=== PATIENT | male | born 1990 | race Caucasian/White ===

== ENCOUNTER 2018-07-06 11:28 | Inpatient (IN) | payer OTHER, SELFPAY ==
[2018-07-06] MEDS ORDERED: Lidocaine 1% PF 5 ML VIAL ONE (11:40)
[2018-07-06] MEDS ORDERED: PROPOFOL 200 MG/20 ML VIAL ONE (11:40)
[2018-07-06] MEDS ORDERED: Ondansetron PF 4 MG/2 ML Vial ONE ×2 (11:40→11:49)
[2018-07-06] MEDS ORDERED: Succinylcholine Chloride 20 MG/ML 10 ml SYRINGE FS ONE (11:40)
[2018-07-06] MEDS ORDERED: Dexamethasone 20 MG/5 ML VIAL ONE (11:40)
[2018-07-06] MEDS ORDERED: Ketorolac Tromethamine 30 MG/ML VIAL ONE (11:40)
[2018-07-06 11:46] LABS: #Basophils 0.1 thou/uL (0.0-0.2); #Eosinphils 0.1 thou/uL (0.0-0.7); #Lymphocytes 3.2 thou/uL (1.20-3.40); #Monocytes 0.7 thou/uL (0.11-0.59); #Neutrophils 9.7 thou/uL (1.40-6.50); %Basophils 0.5 % (0.0-1.0); %Eosinophils 0.5 % (0.0-10.0); %Lymphocytes 23.2 % (21.0-51.0); %Monocytes 4.9 % (0.0-10.0); %Neutrophils 70.9 % (42.0-75.0); Mean Corpuscular HGB CONC 32.6 g/dL (32.0-36.0); Mean Corpuscular Hemoglobin 29.5 pg (27.0-31.0); Mean Corpuscular Volume 90.6 fL (78.0-98.0); Mean Platelet Volume 7.5 fL (7.4-10.4); Platelet Count 312 thou/uL (130-400); RBC Distribution Width 11.5 % (11.5-14.5); Red Blood Cell (RBC) Count 5.43 mill/uL (4.70-6.10); White Blood Cell (WBC) Count 13.7 thou/uL (4.8-10.8)
[2018-07-06] MEDS ORDERED: Morphine 4 MG/ML VIAL ONE ×2 (11:49→12:11)
[2018-07-06 12:03] LABS: ALT (SGPT) 27 U/L (8-55); AST (SGOT) 25 U/L (5-34); Albumin 4.6 g/dL (3.5-5.0); Alkaline Phosphatase 55 U/L (40-150); Anion Gap 13 mmol/L (10-20); BUN (Urea Nitrogen) 13 mg/dL (8.9-20.6); Bilirubin, Total 1.1 mg/dL (0.2-1.2); Calc. Creatinine Clearance 0 mL/min (70-130); Calcium 9.4 mg/dL (7.8-10.44); Carbon Dioxide 21 mmol/L (22-29); Chloride 106 mmol/L (98-107); Estimated GFR-MDRD 78; Globulin 2.5 g/dL (2.4-3.5); Glucose 214 mg/dL (70-105); Potassium 3.3 mmol/L (3.5-5.1); Protein, Total 7.1 g/dL (6.0-8.3); Sodium 137 mmol/L (136-145)
--- NOTE | 2018-07-06 12:14 | CT ---
CT CERVICAL SPINE: History: Trauma. Technique: Axial images were obtained with coronal and sagittal reconstructions. FINDINGS/IMPRESSION: No evidence of acute cervical spine fractures, subluxations, or bony lesions. Osseous structures are unremarkable. Vertebral bodies are unremarkable. Incidentally noted left pterygoid wing fracture is present. Please see accompanying facial CT dictati on. POS: [facility]
[2018-07-06] MEDS ORDERED: HYDROmorphone 0.5 MG/0.5 ML SYRINGE ONE ×2 (12:47→17:42)
--- NOTE | 2018-07-06 13:14 | CT ---
CT FACIAL BONES: 07/06/2018 HISTORY: Injury. Trauma. Pain. COMPARISON: None. TECHNIQUE: Serial axial CT imaging is obtained at 2.5 mm intervals, through the facial bones, without contrast. Coronal and sagittal reformatted imaging obtained. FINDINGS: There is an obliquely oriented fracture involving the calvarium, anteriorly, on the right, just to th e right of midline, superior to the right frontal sinus. There are fracture deformities extending through the anterior wall of the bilateral frontal sinuses, along their inferior margin, at the axial level of the edmundo chance. There is a comminuted and marke dly displaced bilateral nasal bone fracture. There are markedly comminuted and impacted fracture def ormities involving the osseous nasal septum. There is marked associated nasal soft tissue swelling. There is a comminuted and impacted fracture involving the orbital roof, on the right, extending into inferior aspect of the right frontal sinus. Nondisplaced, obliquely oriented fracture suspected, involving the lateral aspect of the orbital wall , on the right. Nondisplaced right zygomatic arch fracture. Comminuted fractures are seen involving the pterygoid plate, extending into the medial and lateral pt erygoids, bilaterally. There is a depressed and comminuted fracture involving the anterior aspect of the maxillary sinus, on the right, extending to involve the posterior wall of the maxillary sinus an d the inferior aspect of the maxillary sinus on the right. There is an orbital floor fracture on the right with 7 mm of inferior displacement into the right maxillary sinus. The mandible appears intact. Neither temporomandibular joint is dislocated. Comminuted, medially displaced, medial orbital wall fractures are noted bilaterally. There is a fracture involving the roof of the orbit on the left, extending into the left frontal sinu s. The left zygomatic arch is intact. A comminuted fracture is seen involving the anterior wall and posterior wall of the left maxillary sinus. Nondisplaced left orbital floor fracture noted. Vertic ally oriented fracture deformity is seen involving the body of the maxilla, on the left, extending fr om the inferior aspect of the left maxillary sinus, anteriorly. There is marked soft tissue swelling and probable multifocal laceration involving the paranasal region and the upper lip. IMPRESSION: Extensive bilateral maxillofacial fractures, as described above. Results called to Dr. Shaikh at 12:02 p.m. on 07/06/2018. CODE CR POS: [facility]
[2018-07-06] MEDS ORDERED: Promethazine HCl 25 MG/ML VIAL ONE (13:18)
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
[2018-07-06] MEDS ORDERED: Dextrose 50% Abboject 50 ML SYRINGE SLOW IVP PRN (14:22)
[2018-07-06] MEDS ORDERED: Dextrose 5% in Water 1,000 ML IV PRN (14:22)
[2018-07-06] MEDS ORDERED: diphenhydrAMINE 50 MG/ML VIAL IM PRN (14:28)
[2018-07-06] MEDS ORDERED: HYDROmorphone 10 mg/100 ml CADD IVPB PRN ×2 (14:28→22:11)
[2018-07-06] MEDS ORDERED: diphenhydrAMINE 25 MG CAP PO PRN (14:28)
[2018-07-06] MEDS ORDERED: Naloxone HCl 0.4 mg/ml Vial IV PRN (14:28)
[2018-07-06] MEDS ORDERED: Promethazine HCl 25 MG/ML VIAL IM PRN ×2 (14:28→22:14)
[2018-07-06] MEDS ORDERED: diphenhydrAMINE 50 MG/ML VIAL IVP PRN (14:28)
[2018-07-06] MEDS ORDERED: Communication Order-Pharmacy FS SCH (14:30)
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
[2018-07-06] MEDS ORDERED: Lidocaine 1% w/Epinephrine 1:100K 30 ML VIAL ONE (16:25)
[2018-07-06] MEDS ORDERED: Chlorhexidine Gluconate 15 ML UDCUP SSP ONE (16:25)
[2018-07-06] MEDS ORDERED: Bupivacaine/Epinephrine 0.25% 30 ML VIAL ONE (16:25)
[2018-07-06] MEDS ORDERED: Hydrocortisone 1% Cream 30 GM TUBE ONE (16:25)
[2018-07-06] MEDS ORDERED: Famotidine/PF 20 mg/2ml Vial ONE (17:41)
[2018-07-06] MEDS ORDERED: Fentanyl 250 MCG/5 ML VIAL ONE (18:20)
[2018-07-06] MEDS ORDERED: Oxymetazoline HCl 0.05% ( 15 ML ) ONE (18:34)
[2018-07-06] MEDS ORDERED: Bacitracin Zinc Ointment 30 gm TUBE ONE ×2 (19:17→20:31)
[2018-07-06] MEDS ORDERED: CEFAZOLIN 1 GM in Sodium Chloride 0.9% 100 ML IVPB SCH (22:00)
[2018-07-06] MEDS ORDERED: Promethazine HCl 25 MG/ML VIAL SLOW IVP PRN (22:14)
[2018-07-06] MEDS ORDERED: Ondansetron HCl/PF 4 MG/2 ML Vial IVP PRN (22:14)
[2018-07-06] MEDS: Sodium Chloride 0.9% 1,000 ML IV SCH (23:23)
[2018-07-06] MEDS: Famotidine 20 MG TAB PO SCH (23:24)
[2018-07-06] MEDS: Acetaminophen 1,000 MG in Premix Bag 1 BAG IVPB SCH (23:28)
--- NOTE | 2018-07-06 23:31 | RAD ---
PORTABLE AP CHEST X-RAY: 07/06/18 HISTORY: Possible aspirated tooth. FINDINGS: The cardiac silhouette and pulmonary vasculature are within normal limits. The lungs are clear. Osse ous structures are intact. No definite radiopaque foreign body is identified. Calcification overlies the left upper quadrant. Exact location of this structure is uncertain. Lungs are clear. Osseous stru ctures are intact. IMPRESSION: 1. No acute cardiopulmonary process. 2. Radiopaque density appearing to represent a calcification overlying the left upper quadrant. This could potentially present a tooth given that there is absence of an small incisor tooth involvin g the maxilla noted on CT scan of the facial bones. However, this is difficult to definitively confir m on this exam. POS: [facility]
--- NOTE | 2018-07-06 23:45 | RAD ---
PORTABLE AP ABDOMINAL RADIOGRAPH 07/06/18 HISTORY: Possible aspirated tooth. FINDINGS: The visualized lung bases are clear. There is gaseous distention of the stomach. There is a calcific density overlying the left upper quadrant which is difficult to further localize. This could potentia lly represent a radiopaque foreign body related to a tooth given absence of the incisor tooth of the maxilla. No additional radiopaque foreign body is seen and there is no additional suspicious calcific ations are seen. Osseous structures appear intact. IMPRESSION: 1. Prominent gaseous distention of the stomach. 2. Radiopaque density appearing to represent a calcification overlying the left upper quadrant. This could potentially present a tooth given that there is absence of an small incisor tooth involvin g the maxilla noted on CT scan of the facial bones. However, this is difficult to definitively confir m on this exam. POS: [facility]
[2018-07-07 00:12] VITALS: BMI 23.8
[2018-07-07] MEDS: Ketorolac Tromethamine 30 MG/ML VIAL IVP SCH ×4 (00:12→17:34)
[2018-07-07] MEDS: Famotidine/PF 20 mg/2ml Vial SLOW IVP SCH ×3 (00:13→20:37)
[2018-07-07] MEDS: Acetaminophen 1,000 MG in Premix Bag 1 BAG IVPB SCH ×4 (00:25→17:35)
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
[2018-07-07] MEDS: Sodium Chloride 0.9% 1,000 ML IV SCH (04:26)
[2018-07-07] MEDS: Ondansetron PF 4 MG/2 ML Vial IVP PRN ×2 (04:49→09:05)
[2018-07-07 04:51] LABS: #Lymphocytes 0.6 thou/uL (1.20-3.40); #Monocytes 0.8 thou/uL (0.11-0.59); #Neutrophils 15.6 thou/uL (1.40-6.50); %Basophils 0.1 % (0.0-1.0); %Eosinophils 0.1 % (0.0-10.0); %Lymphocytes 3.5 % (21.0-51.0); %Monocytes 4.5 % (0.0-10.0); %Neutrophils 91.7 % (42.0-75.0); Hemoglobin 13.9 g/dL (14.0-18.0); Mean Corpuscular Hemoglobin 30.8 pg (27.0-31.0); Mean Corpuscular Volume 90.6 fL (78.0-98.0); Mean Platelet Volume 7.5 fL (7.4-10.4); Platelet Count 207 thou/uL (130-400); RBC Distribution Width 11.5 % (11.5-14.5); Red Blood Cell (RBC) Count 4.52 mill/uL (4.70-6.10)
[2018-07-07 05:03] LABS: Anion Gap 11 mmol/L (10-20); BUN (Urea Nitrogen) 19 mg/dL (8.9-20.6); Calc. Creatinine Clearance 122 mL/min (70-130); Calcium 8.1 mg/dL (7.8-10.44); Carbon Dioxide 22 mmol/L (22-29); Chloride 108 mmol/L (98-107); Estimated GFR-MDRD Greater than 90; Glucose 142 mg/dL (70-105); Potassium 4.1 mmol/L (3.5-5.1); Sodium 137 mmol/L (136-145)
--- NOTE | 2018-07-07 08:13 | CT ---
PRELIMINARY REPORT/[facility]/EMERGENTY AFTER-HOURS PROCEDURE CT Head Without Intravenous Contrast EXAM DATE/TIME: 07/07/2018 5:40 AM CLINICAL HISTORY: 28 years old, male; Condition or disease; Other: Tbi; Patient HX: Evaluate tbi TECHNIQUE: Axial computed tomography images of the head/brain without intravenous contrast. COMPARISON: CT Brain WO Con 07/06/2018 11:41 AM FINDINGS: Brain: No acute hemorrhage. No significant white matter disease. No edema. Ventricles: Normal. No ventriculomegaly. Bones/joints: Again noted are numberous bilateral facial, nasal bone, and orbital fractures. Sinuses: Bilateral hemorrhagic air fluid levels again noted. Mastoid air cells: Normal as visualized. No mastoid effusion. Soft tissues: Again noted is large left scalp hematoma which has increased in size. Now present is le ft sided subcutaneous emphysema. Again noted left periorbital edema and emphysema. IMPRESSION: No acute stroke or intracranial hemorrhage. Progression in left scalp edema/ hematoma. Again noted are numberous bilateral facial, nasal bone, and orbital fractures. Bilateral hemorrhagic air fluid levels again noted. Thank you for allowing us to participate in the care of your patient. Dictated and Authenticated by: Radha Rush MD 07/07/2018 6:01 AM Central Time ([place] & [place]) FINAL REPORT: CT HEAD: Date: 07-07-18 Time: 5:40 a.m. Comparison: CT 07-06-18 FINDINGS: No acute intracranial hemorrhage. Increase in the left scalp edema and hematoma. Facial bone fracture s again noted. I am in agreement with the preliminary report. Code QA POS: [facility]
[2018-07-07] MEDS: Bacitracin Zinc 1 Packet TOP SCH ×3 (09:21→20:38)
[2018-07-07] MEDS: Scopolamine 1.5 mg/72 hour Patch TD SCH (09:21)
[2018-07-07] MEDS: Famotidine 20 MG TAB PO SCH ×2 (09:31→20:38)
[2018-07-07] MEDS ORDERED: Bacitracin Zinc 1 Packet TOP SCH (10:30)
--- NOTE | 2018-07-07 14:42 | CT ---
NONCONTRAST CT FACIAL BONES Date: 07-07-18 History: Multiple facial fractures as well as periorbital fractures. Patient is post ORIF of jaw. Comparison: 07-06-18 FINDINGS: Again noted are multiple facial bone fractures, please seen prior study for description of fractures. Alignment of the multiple facial bone fractures are overall similar to prior exam. Fractures involve the orbital roof on the left extending to the frontal sinus with fractures involving the inferior wa ll of the right frontal sinus. There has been interval wiring involving the maxilla and mandible when compared to the prior exam. Ab sence of a tooth in the anterior maxilla is again present. Again noted is hemorrhage within the paranasal sinuses including the bilateral frontal sinuses, ethmo id air cells, and each maxillary antra with air fluid levels in each sphenoid sinus. There is no post septal hemorrhage or gas present. There is diffuse subcutaneous edema seen about the facial soft tissues and with significant soft tissue swelling seen extending laterally into the late ral left neck. The fractures are overall similar to the prior exam with multiple displaced fractures present. IMPRESSION: 1. Extensive bilateral maxillofacial fractures which were described on prior study. Please see that e xam for further details. 2. Interval wiring of the mandible and maxilla. 3. Hemorrhage throughout the paranasal sinuses. 4. Facial subcutaneous soft tissue swelling with prominent soft tissue swelling about the left latera l facial soft tissues and extending into the neck. 5. There is subcutaneous emphysema in the left infraorbital location, overall the subcutaneous emphys lissette within the facial soft tissues has mildly improved. There is prominent subcutaneous soft tissue s welling seen anterior to the mandible and maxilla. However, soft tissue defects in the midline in reg ion of the maxilla has improved. POS: [facility]
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
[2018-07-08] MEDS: Ketorolac Tromethamine 30 MG/ML VIAL IVP SCH ×4 (00:24→18:00)
[2018-07-08 06:01] LABS: #Eosinphils 0.1 thou/uL (0.0-0.7); #Lymphocytes 1.6 thou/uL (1.20-3.40); #Monocytes 0.7 thou/uL (0.11-0.59); #Neutrophils 7.1 thou/uL (1.40-6.50); %Basophils 0.4 % (0.0-1.0); %Eosinophils 0.7 % (0.0-10.0); %Lymphocytes 16.5 % (21.0-51.0); %Neutrophils 75.4 % (42.0-75.0); Hemoglobin 11.9 g/dL (14.0-18.0); Mean Corpuscular HGB CONC 33.6 g/dL (32.0-36.0); Mean Corpuscular Hemoglobin 30.8 pg (27.0-31.0); Mean Corpuscular Volume 91.7 fL (78.0-98.0); Mean Platelet Volume 7.5 fL (7.4-10.4); Platelet Count 151 thou/uL (130-400); RBC Distribution Width 11.4 % (11.5-14.5); Red Blood Cell (RBC) Count 3.86 mill/uL (4.70-6.10); White Blood Cell (WBC) Count 9.4 thou/uL (4.8-10.8)
[2018-07-08 06:13] LABS: Anion Gap 9 mmol/L (10-20); BUN (Urea Nitrogen) 13 mg/dL (8.9-20.6); Calc. Creatinine Clearance 135 mL/min (70-130); Calcium 8.2 mg/dL (7.8-10.44); Carbon Dioxide 23 mmol/L (22-29); Chloride 112 mmol/L (98-107); Estimated GFR-MDRD Greater than 90; Glucose 95 mg/dL (70-105); Magnesium 1.5 mg/dL (1.6-2.6); Sodium 140 mmol/L (136-145)
[2018-07-08 06:18] LABS: Phosphorus 1.9 mg/dL (2.3-4.7)
--- NOTE | 2018-07-08 07:59 | RAD ---
PORTABLE CHEST: Date: 07/08/18 HISTORY: Follow-up aspiration. COMPARISON: 07/06/18. FINDINGS: Lung vela remain clear. No infiltrate apparent. Heart and mediastinum unremarkable. IMPRESSION: No evidence of infiltrate. POS: [facility]
[2018-07-08] MEDS ORDERED: Magnesium 2 GM/50 ML 2 GM in Premix Bag 1 BAG IVPB SCH (08:00)
[2018-07-08] MEDS ORDERED: Sodium Phosphate 30 MEQ in Sodium Chloride 0.9% 250 ML 250 ML IVPB SCH (08:00)
[2018-07-08] MEDS: Bacitracin Zinc 1 Packet TOP SCH ×3 (08:22→20:48)
[2018-07-08] MEDS: Famotidine 20 MG TAB PO SCH ×2 (08:22→20:42)
[2018-07-08] MEDS: Famotidine/PF 20 mg/2ml Vial SLOW IVP SCH ×2 (08:25→20:41)
[2018-07-08] MEDS ORDERED: Magnesium Sulfate 3 GM in Sodium Chloride 0.9% 100 ML IVPB SCH (11:30)
[2018-07-08] MEDS: SULFAMYLON TOP SCH ×2 (11:44→11:48)
[2018-07-08] MEDS ORDERED: [UNRECOGNIZED DRUG - OTHER] TP SCH (12:00)
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
[2018-07-08] MEDS: Acetaminophen/Codeine 120-12MG/5 ML UDCUP PO PRN (18:45)
[2018-07-08] MEDS: [UNRECOGNIZED DRUG - OTHER] TP SCH (20:41)
[2018-07-09] MEDS: Ketorolac Tromethamine 30 MG/ML VIAL IVP SCH ×5 (06:06→23:47)
[2018-07-09 06:11] LABS: #Eosinphils 0.1 thou/uL (0.0-0.7); #Lymphocytes 1.4 thou/uL (1.20-3.40); #Monocytes 0.7 thou/uL (0.11-0.59); #Neutrophils 5.8 thou/uL (1.40-6.50); %Basophils 0.4 % (0.0-1.0); %Eosinophils 1.2 % (0.0-10.0); %Lymphocytes 16.9 % (21.0-51.0); %Monocytes 8.4 % (0.0-10.0); Hemoglobin 11.4 g/dL (14.0-18.0); Mean Corpuscular HGB CONC 34.6 g/dL (32.0-36.0); Mean Corpuscular Hemoglobin 31.6 pg (27.0-31.0); Mean Corpuscular Volume 91.4 fL (78.0-98.0); Mean Platelet Volume 7.7 fL (7.4-10.4); Platelet Count 157 thou/uL (130-400); RBC Distribution Width 11.4 % (11.5-14.5); Red Blood Cell (RBC) Count 3.61 mill/uL (4.70-6.10)
[2018-07-09 06:36] LABS: Anion Gap 9 mmol/L (10-20); BUN (Urea Nitrogen) 8 mg/dL (8.9-20.6); Calc. Creatinine Clearance 134 mL/min (70-130); Calcium 8.5 mg/dL (7.8-10.44); Carbon Dioxide 25 mmol/L (22-29); Chloride 111 mmol/L (98-107); Estimated GFR-MDRD Greater than 90; Glucose 98 mg/dL (70-105); Magnesium 2.1 mg/dL (1.6-2.6); Phosphorus 2.5 mg/dL (2.3-4.7); Potassium 3.8 mmol/L (3.5-5.1); Sodium 141 mmol/L (136-145)
[2018-07-09] MEDS: Acetaminophen/Codeine 120-12MG/5 ML UDCUP PO PRN ×2 (08:30→23:53)
[2018-07-09] MEDS: Famotidine/PF 20 mg/2ml Vial SLOW IVP SCH ×2 (08:32→21:19)
[2018-07-09] MEDS: [UNRECOGNIZED DRUG - OTHER] TP SCH ×2 (08:33→21:26)
[2018-07-09] MEDS: Bacitracin Zinc 1 Packet TOP SCH ×2 (08:33→21:21)
[2018-07-09] MEDS: Famotidine 20 MG TAB PO SCH ×2 (08:34→21:21)
[2018-07-09] MEDS: Chlorhexidine Gluconate 15 ML UDCUP SSP SCH (21:20)
[2018-07-09] MEDS: Enoxaparin Sodium 40 MG/0.4 ML SYRINGE SC SCH (21:20)
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
[2018-07-10] MEDS: Polyethylene Glycol 3350 17 GM Packet PO SCH (08:09)
[2018-07-10] MEDS: Famotidine/PF 20 mg/2ml Vial SLOW IVP SCH ×2 (08:09→20:13)
[2018-07-10] MEDS: Bacitracin Zinc 1 Packet TOP SCH ×2 (08:09→20:12)
[2018-07-10] MEDS: [UNRECOGNIZED DRUG - OTHER] TP SCH ×2 (08:10→20:14)
[2018-07-10] MEDS: Senokot 8.6 MG TAB PO SCH ×2 (08:10→20:14)
[2018-07-10] MEDS: Scopolamine 1.5 mg/72 hour Patch TD SCH (08:10)
[2018-07-10] MEDS: Chlorhexidine Gluconate 15 ML UDCUP SSP SCH ×3 (08:10→17:39)
[2018-07-10] MEDS: Famotidine 20 MG TAB PO SCH ×2 (08:10→20:14)
--- NOTE | 2018-07-10 13:24 | PRG ---
DATE OF SERVICE: 07/10/2018 SUBJECTIVE: No acute 24-hour events. The patient is doing well. Pain is well controlled. OBJECTIVE: Prieto looked better than the day before. MMF is intact. All other wounds are clean, dry, and intact. There are no signs or symptoms of infection at this point. ASSESSMENT: Multiple facial fractures, status post repair of LeFort I fracture , multiple facial prieto. PLAN: We will take the patient to the operating room, likely Tuesday or this week, for ORIF of facial fractures of the orbit as well as nose, which would possibly need a closed reduction. Continue Dr. Rosario's recommendations and appreciate his help. NELIA
[2018-07-10] MEDS: Acetaminophen/Codeine 120-12MG/5 ML UDCUP PO PRN ×2 (15:47→20:15)
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
[2018-07-10] MEDS: Enoxaparin Sodium 40 MG/0.4 ML SYRINGE SC SCH (20:13)
[2018-07-10] MEDS: Ibuprofen 100 MG/5 ML UDCUP PO PRN (23:41)
[2018-07-11] MEDS: Famotidine/PF 20 mg/2ml Vial SLOW IVP SCH ×2 (07:54→21:32)
[2018-07-11] MEDS: Chlorhexidine Gluconate 15 ML UDCUP SSP SCH ×3 (07:54→17:13)
[2018-07-11] MEDS: [UNRECOGNIZED DRUG - OTHER] TP SCH ×2 (07:55→21:31)
[2018-07-11] MEDS: Polyethylene Glycol 3350 17 GM Packet PO SCH (07:55)
[2018-07-11] MEDS: Bacitracin Zinc 1 Packet TOP SCH ×2 (07:56→21:32)
[2018-07-11] MEDS: Famotidine 20 MG TAB PO SCH ×2 (07:56→22:14)
[2018-07-11] MEDS: Senokot 8.6 MG TAB PO SCH ×2 (07:56→21:31)
[2018-07-11] MEDS ORDERED: Acetaminophen/Codeine Oral Solution PO PRN (09:20)
[2018-07-11] MEDS ORDERED: diphenhydrAMINE 50 MG/ML VIAL IVP PRN (09:21)
[2018-07-11] MEDS: Ibuprofen 100 MG/5 ML UDCUP PO PRN (09:30)
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
[2018-07-11] MEDS: Enoxaparin Sodium 40 MG/0.4 ML SYRINGE SC SCH (21:31)
[2018-07-12] MEDS: Ibuprofen 100 MG/5 ML UDCUP PO PRN ×3 (00:19→22:10)
[2018-07-12] MEDS: Bacitracin Zinc 1 Packet TOP SCH ×2 (09:25→22:01)
[2018-07-12] MEDS: [UNRECOGNIZED DRUG - OTHER] TP SCH ×2 (09:29→22:01)
[2018-07-12] MEDS: Polyethylene Glycol 3350 17 GM Packet PO SCH (09:32)
[2018-07-12] MEDS: Zinc Sulfate 220 MG CAP PO SCH (09:34)
[2018-07-12] MEDS: Senokot 8.6 MG TAB PO SCH ×2 (09:35→22:00)
[2018-07-12] MEDS: Ascorbic Acid 500 mg Chewable Tablet PO SCH (09:35)
[2018-07-12] MEDS: Famotidine 20 MG TAB PO SCH ×2 (09:35→22:01)
[2018-07-12] MEDS: Bisacodyl 5 MG TAB PO SCH (09:35)
[2018-07-12] MEDS: Chlorhexidine Gluconate 15 ML UDCUP SSP SCH ×3 (09:49→17:32)
[2018-07-12] MEDS: Famotidine/PF 20 mg/2ml Vial SLOW IVP SCH ×2 (09:50→22:00)
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
[2018-07-12] MEDS: Enoxaparin Sodium 40 MG/0.4 ML SYRINGE SC SCH (22:00)
[2018-07-13] MEDS: Ascorbic Acid 500 mg Chewable Tablet PO SCH (08:22)
[2018-07-13] MEDS: Zinc Sulfate 220 MG CAP PO SCH (08:22)
[2018-07-13] MEDS: Bisacodyl 5 MG TAB PO SCH (08:22)
[2018-07-13] MEDS: Senokot 8.6 MG TAB PO SCH ×2 (08:22→22:54)
[2018-07-13] MEDS: Famotidine 20 MG TAB PO SCH ×2 (08:23→22:53)
[2018-07-13] MEDS: Polyethylene Glycol 3350 17 GM Packet PO SCH (08:23)
[2018-07-13] MEDS: Scopolamine 1.5 mg/72 hour Patch TD SCH (08:47)
[2018-07-13] MEDS: Chlorhexidine Gluconate 15 ML UDCUP SSP SCH ×3 (08:47→18:38)
[2018-07-13] MEDS: Famotidine/PF 20 mg/2ml Vial SLOW IVP SCH ×2 (08:47→22:53)
[2018-07-13] MEDS: Bacitracin Zinc 1 Packet TOP SCH ×2 (08:47→22:53)
[2018-07-13] MEDS: [UNRECOGNIZED DRUG - OTHER] TP SCH ×2 (08:48→22:55)
[2018-07-13] MEDS ORDERED: Ketorolac Tromethamine 30 MG/ML VIAL ONE (11:58)
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
[2018-07-13] MEDS ORDERED: Bacitracin Zinc Ointment 30 gm TUBE ONE (15:50)
[2018-07-13] MEDS ORDERED: Lidocaine 1% w/Epinephrine 1:100K 30 ML VIAL ONE (15:50)
[2018-07-13] MEDS ORDERED: Ophthalmic Irrigation Solution 15 ML ONE ×2 (15:51→20:18)
[2018-07-13] MEDS ORDERED: HYDROmorphone 2 MG/ML VIAL ONE (16:07)
[2018-07-13] MEDS ORDERED: Fentanyl 250 MCG/5 ML VIAL ONE ×3 (16:07→17:47)
[2018-07-13] MEDS ORDERED: CEFAZOLIN 1 GM VIAL ONE (16:27)
[2018-07-13] MEDS ORDERED: SUGAMMADEX SODIUM 500 MG/5 ML VIAL ONE (17:17)
[2018-07-13] MEDS ORDERED: Chlorhexidine Gluconate 15 ML UDCUP SSP ONE (19:20)
[2018-07-13] MEDS ORDERED: Oxymetazoline HCl 0.05% ( 15 ML ) ONE (19:21)
[2018-07-13] MEDS ORDERED: Promethazine HCl 25 MG/ML VIAL IM PRN (20:50)
[2018-07-13] MEDS ORDERED: Ondansetron HCl/PF 4 MG/2 ML Vial IVP PRN (20:50)
[2018-07-13] MEDS ORDERED: Promethazine HCl 25 MG/ML VIAL SLOW IVP PRN (20:50)
[2018-07-13] MEDS: Enoxaparin Sodium 40 MG/0.4 ML SYRINGE SC SCH (22:52)
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
[2018-07-14] MEDS: Ibuprofen 100 MG/5 ML UDCUP PO PRN (09:11)
[2018-07-14] MEDS: Bacitracin Zinc 1 Packet TOP SCH ×2 (09:16→21:37)
[2018-07-14] MEDS: [UNRECOGNIZED DRUG - OTHER] TP SCH ×2 (09:16→21:47)
[2018-07-14] MEDS: Chlorhexidine Gluconate 15 ML UDCUP SSP SCH ×3 (09:17→18:22)
[2018-07-14] MEDS: Famotidine/PF 20 mg/2ml Vial SLOW IVP SCH ×2 (09:17→21:37)
[2018-07-14] MEDS: Zinc Sulfate 220 MG CAP PO SCH (09:26)
[2018-07-14] MEDS: Bisacodyl 5 MG TAB PO SCH (09:26)
[2018-07-14] MEDS: Famotidine 20 MG TAB PO SCH ×2 (09:26→23:02)
[2018-07-14] MEDS: Polyethylene Glycol 3350 17 GM Packet PO SCH (09:26)
[2018-07-14] MEDS: Ascorbic Acid 500 mg Chewable Tablet PO SCH (09:26)
[2018-07-14] MEDS: Senokot 8.6 MG TAB PO SCH ×2 (09:26→23:02)
[2018-07-14] MEDS ORDERED: Acetaminophen/Codeine Oral Solution PO PRN (10:14)
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
[2018-07-14] MEDS: Acetaminophen 650 MG/20.3 ML UDCUP PO SCH ×3 (11:07→23:03)
[2018-07-14] MEDS: Dexamethasone 4 MG TAB PO SCH ×2 (11:08→18:22)
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
[2018-07-14] MEDS: Enoxaparin Sodium 40 MG/0.4 ML SYRINGE SC SCH (21:37)
[2018-07-15] MEDS: Dexamethasone 4 MG TAB PO SCH (01:03)
[2018-07-15] MEDS: Acetaminophen 650 MG/20.3 ML UDCUP PO SCH ×2 (05:21→12:14)
[2018-07-15] MEDS ORDERED: CEFAZOLIN 1 GM in Sodium Chloride 0.9% 100 ML IVPB SCH (08:00)
[2018-07-15] MEDS: Chlorhexidine Gluconate 15 ML UDCUP SSP SCH ×2 (09:21→12:14)
[2018-07-15] MEDS: Bacitracin Zinc 1 Packet TOP SCH (09:21)
[2018-07-15] MEDS: Bisacodyl 5 MG TAB PO SCH (09:27)
[2018-07-15] MEDS: Ascorbic Acid 500 mg Chewable Tablet PO SCH (09:27)
[2018-07-15] MEDS: Famotidine 20 MG TAB PO SCH (09:28)
[2018-07-15] MEDS: [UNRECOGNIZED DRUG - OTHER] TP SCH (09:28)
[2018-07-15] MEDS: Famotidine/PF 20 mg/2ml Vial SLOW IVP SCH (09:28)
[2018-07-15] MEDS: Polyethylene Glycol 3350 17 GM Packet PO SCH (09:28)
[2018-07-15] MEDS: Zinc Sulfate 220 MG CAP PO SCH (09:28)
[2018-07-15] MEDS: Senokot 8.6 MG TAB PO SCH (09:28)
[2018-07-15 12:05] VITALS: BP 114/77; TEMP 98.1
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
== END 2018-07-15 15:38 | disposition home or self-care (01) | DRG 131 ==
LOC: ERS 11:28 → SDC 15:14 → IMCU/EMU 22:09 → SJJU 07-07 10:40
PROVIDERS: ADMIT Surgery; ATTEND Surgery
PROC: 0NSR04Z Reposition Maxilla with Internal Fixation Device, Open Approach (ICD-10-PCS; principal; 2018-07-07)
PROC: 0NSQ0ZZ Reposition Left Orbit, Open Approach (ICD-10-PCS; 2018-07-07)
PROC: 0NSP0ZZ Reposition Right Orbit, Open Approach (ICD-10-PCS; 2018-07-07)
PROC: 0KQ10ZZ Repair Facial Muscle, Open Approach (ICD-10-PCS; 2018-07-07)
PROC: 0CQ1XZZ Repair Lower Lip, External Approach (ICD-10-PCS; 2018-07-07)
PROC: 09QKXZZ Repair Nasal Mucosa and Soft Tissue, External Approach (ICD-10-PCS; 2018-07-07)
PROC: 0NSP04Z Reposition Right Orbit with Internal Fixation Device, Open Approach (ICD-10-PCS; 2018-07-13)
PROC: 0NSBXZZ Reposition Nasal Bone, External Approach (ICD-10-PCS; 2018-07-13)
DX: S02.411A LeFort I fracture, initial encounter for closed fracture (principal); S02.32XA Fracture of orbital floor, left side, initial encounter for closed fracture; S02.19XA Other fracture of base of skull, initial encounter for closed fracture; S02.31XA Fracture of orbital floor, right side, initial encounter for closed fracture; T20.312A Burn of third degree of left ear [any part, except ear drum], initial encounter; S02.40EA Zygomatic fracture, right side, initial encounter for closed fracture; T20.10XA Burn of first degree of head, face, and neck, unspecified site, initial encounter; S02.5XXA Fracture of tooth (traumatic), initial encounter for closed fracture; T20.26XA Burn of second degree of forehead and cheek, initial encounter; T20.22XA Burn of second degree of lip(s), initial encounter; T31.0 Burns involving less than 10% of body surface; S02.2XXA Fracture of nasal bones, initial encounter for closed fracture; S01.21XA Laceration without foreign body of nose, initial encounter; S01.111A Laceration without foreign body of right eyelid and periocular area, initial encounter; S01.511A Laceration without foreign body of lip, initial encounter; R79.9 Abnormal finding of blood chemistry, unspecified; W38.XXXA Explosion and rupture of other specified pressurized devices, initial encounter; X13.1XXA Other contact with steam and other hot vapors, initial encounter; Y93.G3 Activity, cooking and baking; Y99.0 Civilian activity done for income or pay; Z88.0 Allergy status to penicillin; Y92.511 Restaurant or cafe as the place of occurrence of the external cause
CPT/HCPCS: 36415; 70450; 70480; 70486; 71045; 72125; 74018; 76377; 80048; 80053; 83735; 84100; 85025; 94640; 96361; 96374; 96375; C1713; G0390; G8978-GP-CJ; G8979-GP-CJ; G8980-GP-CJ; G8987-GO-CJ; G8988-GO-CI; J0131; J0690; J1100; J1170; J1650; J1885; J2001; J2270; J2405; J2550; J2704; J3010; J3475; J7050; J8540; S0028

== ENCOUNTER 2018-10-19 12:00 | Outpatient (CLI) | payer OTHER ==
--- NOTE | 2018-10-19 15:20 | CT ---
ORBIT CT WITHOUT CONTRAST: COMPARISON: 07/13/2018. HISTORY: Closed orbit fracture. Routine healing. FINDINGS: Visualized brain parenchyma is unremarkable. Adequate aeration of the visualized sinuses and mastoid air cells. Remote left lamina papyracea fracture. Remote injury involving the right frontal calvarium. Remote injury at the bridge of the nose. There has been internal fixation along the left and right nasal ramesh ne fractures. Remote fracture fragments are noted. There is internal fixation of a right orbital fl oor fracture. There is still some fat deep to the fixation plate but superficial to the remaining or bital floor. Correlate clinically for any entrapment. Bilaterally, osteomeatal complexes appear to be patent. Leftward deviation of the septum. Internal fixation hardware along the left and right aspect of the maxilla. Pterygoid plates are intact. Adequate aeration of the mastoid air cells. Bilateral zygomatic arches are intact. Visualized mandible is unremarkable. IMPRESSION: Extensive internal fixation hardware with associated and expected postprocedure changes. POS: [facility]
== END 2018-10-19 12:01 | disposition home or self-care (01) ==
LOC: BICCT 12:00
PROVIDERS: ATTEND Family Medicine
DX: S09.93XD Unspecified injury of face, subsequent encounter (principal); S02.80XD Fracture of other specified skull and facial bones, unspecified side, subsequent encounter for fracture with routine healing; Z98.890 Other specified postprocedural states
CPT/HCPCS: 70480

== ENCOUNTER 2019-03-05 13:26 | Outpatient (CLI) | payer OTHER ==
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
== END 2019-03-05 13:27 | disposition home or self-care (01) ==
LOC: BICCT 13:26
PROVIDERS: ATTEND Family Medicine
DX: S02.80XD Fracture of other specified skull and facial bones, unspecified side, subsequent encounter for fracture with routine healing (principal); S09.93XD Unspecified injury of face, subsequent encounter; T20.0 Burn of unspecified degree of head, face, and neck; Z98.890 Other specified postprocedural states
CPT/HCPCS: 70480